=== PATIENT | male | born 1985 | race Two or more races ===

== ENCOUNTER 2024-06-29 13:37 | Emergency (ER) | payer OTHER ==
[~2024-06-29] VITALS: Ht 188 cm; Wt 97.5 kg
[2024-06-29 13:56] VITALS: BP 156/79; O2SAT 97
[2024-06-29] MEDS ORDERED: TRAMADOL HCL 50 MG TABLET PO STA (16:03)
[2024-06-29] MEDS ORDERED: NORFLEX100MG PO (19:19)
== END 2024-06-29 19:27 | disposition home or self-care (01) ==
LOC: ER 13:38
DX: M54.2 Cervicalgia (principal); H93.12 Tinnitus, left ear; M79.602 Pain in left arm; V49.9XXA Car occupant (driver) (passenger) injured in unspecified traffic accident, initial encounter; Y93.9 Activity, unspecified; Y92.9 Unspecified place or not applicable; Y99.9 Unspecified external cause status